=== PATIENT | male | born 1945 | race Caucasian/White ===

== ENCOUNTER 2021-05-10 18:09 | Inpatient (IN) | payer BC ==
[~2021-05-10] VITALS: Ht 180.3 cm; Wt 115.8 kg
--- NOTE | 2021-05-10 20:15 | RAD ---
EXAMINATION: Chest radiograph. VIEWS: 1 COMPARISON: None INDICATION:76 years, Male, Covid pneumonia. FINDINGS: Normal cardiomediastinal silhouette. Left basilar atelectatic changes versus scarring. No focal conso lidation. No pleural effusion or pneumothorax. No acute osseous process. IMPRESSION: No acute cardiopulmonary process. Electronically signed by: Jeff Busch MD (05/10/2021 8:13 PM) [facility]
[2021-05-10] MEDS ORDERED: ACETAMINOPHEN 500 MG TABLET PO ONE (20:30)
[2021-05-10] MEDS ORDERED: IV NORMAL SALINE 1000ML BAG 1,000 ML IV ONE ×2 (20:30→22:00)
[2021-05-10 20:59] LABS: BASO % 0 % (0-3); EOS # 0.1 x10^3/uL (0.0-0.7); EOS % 1 % (0-3); HEMATOCRIT 38.3 % (39.0-53.0); LYMPH # 1.8 x10^3/uL (1.0-4.8); LYMPH % 29 % (24-48); MEAN CORPUSCULAR HEMOGLOBIN 33 pg (25-35); MEAN CORPUSCULAR HGB CONC 34 g/dL (31-37); MEAN CORPUSCULAR VOLUME 96 fL (79-100); MONO # 0.7 x10^3/uL (0.0-1.1); MONO % 12 % (0-9); NEUT # 3.4 x10^3/uL (1.8-7.7); NEUT % 57 % (31-73); PLATELET COUNT 182 x10^3/uL (140-400); RED BLOOD COUNT 3.99 x10^6/uL (4.30-5.70); RED CELL DISTRIBUTION WIDTH 13.3 % (11.5-14.5); WHITE BLOOD COUNT 6.1 x10^3/uL (4.0-11.0)
[2021-05-10 21:07] LABS: CREATININE 2.6 mg/dL (0.7-1.3); POTASSIUM 4.5 mmol/L (3.5-5.1)
[2021-05-10 21:12] LABS: D-DIMER 0.39 ug/mlFEU (0.00-0.50)
[2021-05-10 21:14] LABS: ALBUMIN 3.6 g/dL (3.4-5.0); TOTAL BILIRUBIN 0.4 mg/dL (0.2-1.0); TOTAL PROTEIN 7.3 g/dL (6.4-8.2)
[2021-05-10 21:31] LABS: % ATYL 3 % (0-0); % BANDS 4 % (0-9); % EOS 3 % (0-5); % LYMPHS 30 % (24-48); % MONOS 8 % (0-10); % MYELOS 3 % (0-0); % SEGS 49 % (35-66); PLT ESTIMATE ADEQUATE (ADEQUATE)
[2021-05-11 01:00] LABS: BILIRUBIN,URINE NEGATIVE (NEG); CLARITY,URINE CLEAR; COLOR,URINE YELLOW; NITRITE,URINE NEGATIVE (NEG); PH,URINE 5.5 (<5.0-8.0); PROTEIN,URINE NEGATIVE (NEG-TRACE); UROBILINOGEN,URINE 0.2 mg/dL (0.2 mg/dL)
[2021-05-11 01:11] LABS: BACTERIA,URINE 0 /HPF (0-FEW); HYALINE CASTS, URINE MODERATE /HPF; RBC,URINE 0 /HPF (0-2); WBC,URINE 0 /HPF (0-4)
--- NOTE | 2021-05-11 02:27 | PHYS DOC ---
Adult General Chief Complaint Chief Complaint: SHORTNESS OF BREATH HPI HPI The patient is a 76-year-old male who presents for evaluation of symptoms of illness in the setting of known COVID-19 diagnosis with about 10 days of symptoms. Patient has had diminished oral intake over the past few days along with several episodes of watery diarrhea each day. Family are concerned that he is dehydrated. He is alert and oriented and pleasantly and appropriately interactive and in no acute distress. Vital signs are notable for soft blood pressure; patient is also somewhat bradycardic but family state that is normal for him. Mucous membranes appear dry. Patient denies pain anywhere. He denies vomiting, difficulty breathing, chest pain of any kind, abdominal pain of any kind, flank pain, midline back pain, dysuria, hematuria, polyuria or oliguria. Review of Systems Review of Systems A 12 point review of systems was completed and was negative except where noted in HPI above. Current Medications Current Medications Current Medications Medications (Trade) Dose Ordered Sig/Lilly Start Time Stop Time Status Last Admin Dose Admin Acetaminophen (Tylenol) 1,000 mg 1X ONCE 05/10/21 20:30 05/10/21 20:34 DC 05/10/21 20:52 1,000 MG Sodium Chloride 1,000 ml @ 1,000 mls/hr 1X ONCE 05/10/21 20:30 05/10/21 21:29 DC 05/10/21 20:30 1,000 MLS/HR Allergies Allergies Allergies Coded Allergies Type Severity Reaction Last Updated Verified Penicillins Allergy Intermediate 05/10/21 Yes Physical Exam Physical Exam Elderly male appearing nontoxic and in no acute distress. Head is normocephalic and atraumatic. Neck is supple and nontender. Oropharynx is tacky. Lungs are clear to auscultation at all stations. There is a normal S1 and S2 without rubs or gallops and capillary refill is appropriate, less than 2 seconds globally. Abdomen is soft, nontender and nondistended. Skin is warm and dry without cyanosis, clubbing or edema. Psychiatrically, the patient demonstrates appropriate mood and affect and is alert. Evaluation of the extremities reveals BUEs and BLEs neurovascularly intact distally with strength 5-5, sensation intact light touch in all nerve distributions, radial, DP and PT pulses 2+ and equal bilaterally, capillary refill less than 2 seconds, hands and feet warm and well-perfused. No dependent peripheral edema distally. No calf tenderness or swelling bilaterally. Homans test is negative bilaterally. Current Patient Data Vital Signs Vital Signs Date Time Temp Pulse Resp B/P (MAP) Pulse Ox O2 Delivery O2 Flow Rate FiO2 05/10/21 21:30 65 98/68 (78) 95 Room Air 05/10/21 20:10 16 2.0 Lab Values Laboratory Tests Test 05/10/21 20:20 05/10/21 20:30 White Blood Count 6.1 x10^3/uL (4.0-11.0) Red Blood Count 3.99 x10^6/uL (4.30-5.70) L Hemoglobin 13.0 g/dL (13.0-17.5) Hematocrit 38.3 % (39.0-53.0) L Mean Corpuscular Volume 96 fL (79-100) Mean Corpuscular Hemoglobin 33 pg (25-35) Mean Corpuscular Hemoglobin Concent 34 g/dL (31-37) Red Cell Distribution Width 13.3 % (11.5-14.5) Platelet Count 182 x10^3/uL (140-400) Neutrophils (%) (Auto) 57 % (31-73) Lymphocytes (%) (Auto) 29 % (24-48) Monocytes (%) (Auto) 12 % (0-9) H Eosinophils (%) (Auto) 1 % (0-3) Basophils (%) (Auto) 0 % (0-3) Neutrophils # (Auto) 3.4 x10^3/uL (1.8-7.7) Lymphocytes # (Auto) 1.8 x10^3/uL (1.0-4.8) Monocytes # (Auto) 0.7 x10^3/uL (0.0-1.1) Eosinophils # (Auto) 0.1 x10^3/uL (0.0-0.7) Basophils # (Auto) 0.0 x10^3/uL (0.0-0.2) Segmented Neutrophils % 49 % (35-66) Band Neutrophils % 4 % (0-9) Lymphocytes % 30 % (24-48) Atypical Lymphocytes % (Manual) 3 % (0-0) H Monocytes % 8 % (0-10) Eosinophils % 3 % (0-5) Myelocytes % 3 % (0-0) H Platelet Estimate Adequate (ADEQUATE) Large Platelets Few Giant Platelets Occ Prothrombin Time 13.0 SEC (11.7-14.0) Prothrombin Time INR 1.0 (0.8-1.1) Activated Partial Thromboplast Time 27 SEC (24-38) D-Dimer (Ashely) 0.39 ug/mlFEU (0.00-0.50) Sodium Level 134 mmol/L (136-145) L Potassium Level 4.5 mmol/L (3.5-5.1) Chloride Level 100 mmol/L (98-107) Carbon Dioxide Level 27 mmol/L (21-32) Anion Gap 7 (6-14) Blood Urea Nitrogen 48 mg/dL (8-26) H Creatinine 2.6 mg/dL (0.7-1.3) H Estimated GFR (Cockcroft-Gault) 24.0 BUN/Creatinine Ratio 18 (6-20) Glucose Level 117 mg/dL (70-99) H Lactic Acid Level 1.0 mmol/L (0.4-2.0) Calcium Level 9.0 mg/dL (8.5-10.1) Total Bilirubin 0.4 mg/dL (0.2-1.0) Aspartate Amino Transferase (AST) 62 U/L (15-37) H Alanine Aminotransferase (ALT) 79 U/L (16-63) H Alkaline Phosphatase 107 U/L (46-116) Troponin I High Sensitivity 12 ng/L (4-75) FA-Fid-P-Type Natriuretic Peptide 266 pg/mL (0-449) Total Protein 7.3 g/dL (6.4-8.2) Albumin 3.6 g/dL (3.4-5.0) Albumin/Globulin Ratio 1.0 (1.0-1.7) SARS-CoV-2 Antigen (Rapid) Positive (NEGATIVE) *A Laboratory Tests 05/10/21 20:20 Laboratory Tests 05/10/21 20:20 EKG EKG Sinus rhythm, rate 50, first-degree AV block, no acute ST elevation or depress ion, MI 206, QRS 84, QTc 428, EP interpretation. Nonischemic tracing. Radiology/Procedures Radiology/Procedures EXAMINATION: Chest radiograph. VIEWS: 1 COMPARISON: None INDICATION:76 years, Male, Covid pneumonia. FINDINGS: Normal cardiomediastinal silhouette. Left basilar atelectatic changes versus scarring. No focal consolidation. No pleural effusion or pneumothorax. No acute osseous process. IMPRESSION: No acute cardiopulmonary process. Electronically signed by: Fito Busch MD (05/10/2021 8:13 PM) [facility] DICTATED and SIGNED BY: FITO BUSCH MD DATE: 05/10/[id number] 0 Course & Med Decision Making Course & Med Decision Making Patient is resting comfortably in no acute distress on serial reassessments. Work-up remarkable primarily for evidence of acute renal insufficiency, likely prerenal by history and lab pattern. Transaminasemia is also noted, mild, which is probably secondary to COVID infection. Soft blood pressures have resolved after 2 L of IV fluid rehydration here in the emergency department. Have placed the patient on gentle maintenance fluid infusion as well. Will bring in for further care under hospitalist Dr. Brewster, who graciously accepts. Dragon Disclaimer Dragon Disclaimer This electronic medical record was generated, in whole or in part, using a voice recognition dictation system. Departure Departure Impression: Primary Impression: Acute renal insufficiency Additional Impressions: Dehydration COVID-19 Disposition: ADMITTED INPATIENT Condition: STABLE Referrals: NO PCP (PCP) Problem Qualifiers VASQUEZ RAMOS MD May 11, 2021 02:27
[2021-05-11] MEDS ORDERED: ACETAMINOPHEN 325 MG TABLET. PO PRN (02:30)
[2021-05-11] MEDS ORDERED: ONDANSETRON PF 4 MG/2 ML VIAL. IVP PRN (02:30)
[2021-05-11] MEDS ORDERED: IV DEXTROSE 5%-LACT RINGERS 1,000 ML IV ONE (03:00)
[2021-05-11 04:25] VITALS: BP 123/69
--- NOTE | 2021-05-11 05:57 | EKG ---
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
[2021-05-11 07:00] VITALS: BP 138/63
[2021-05-11] MEDS ORDERED: PROB500T23 PO (08:08)
[2021-05-11] MEDS ORDERED: METO50TA6 PO (08:08)
[2021-05-11] MEDS ORDERED: AMLO-187 PO (08:08)
[2021-05-11] MEDS ORDERED: TIZA-75 PO (08:08)
[2021-05-11] MEDS ORDERED: HYDR-2145 PO (08:08)
[2021-05-11] MEDS ORDERED: SPIR25TA5 PO (08:11)
[2021-05-11] MEDS ORDERED: LISI-379 PO (08:11)
[2021-05-11] MEDS ORDERED: CRESTOR40 MG PO (08:11)
[2021-05-11] MEDS ORDERED: TRAM50TA PO (08:11)
[2021-05-11] MEDS ORDERED: guaiFENesin/CODEINE 100mg/10mg 5 ML LIQUID PO PRN (09:15)
[2021-05-11] MEDS ORDERED: LOPERAMIDE 2 MG CAPSULE PO PRN (09:30)
[2021-05-11] MEDS ORDERED: traMADol 50 MG TABLET PO PRN (09:30)
[2021-05-11] MEDS: LISINOPRIL 20 MG TABLET PO SCH (10:00)
[2021-05-11] MEDS: PROBENECID 500 MG TABLET PO SCH ×2 (10:00→20:00)
[2021-05-11] MEDS: SPIRONOLACTONE 25 MG TABLET PO SCH (10:00)
[2021-05-11] MEDS ORDERED: ALBUTEROL SULFATE 8GM INHALER. INH PRN (10:00)
[2021-05-11] MEDS ORDERED: ENOXAPARIN 30 MG/0.3 ML SYRINGE. SQ SCH (10:00)
[2021-05-11] MEDS: METOPROLOL TART IMMED RELEASE 50 MG TABLET. PO SCH ×2 (10:00→20:00)
[2021-05-11 10:59] VITALS: BP 104/64
[2021-05-11] MEDS: hydroCHLOROthiazide 25 MG TABLET PO SCH (11:40)
[2021-05-11] MEDS: methylPREDNISolone SOD SUCC PF 40 MG/ML VIAL. IV SCH ×2 (11:40→20:00)
[2021-05-11] MEDS: ASPIRIN CHEWABLE 81 MG TABLET. PO SCH (11:47)
[2021-05-11] MEDS: cefTRIAXone IV Push 1 GM VIAL. IVP SCH (11:47)
[2021-05-11] MEDS: DOXYCYCLINE HYCLATE 100 MG in IV DEXTROSE 5% 100ML 100 ML IV SCH ×2 (11:47→19:58)
[2021-05-11] MEDS: MULTIVITAMIN with MINERAL TABLET. PO SCH (11:48)
[2021-05-11] MEDS: tiZANidine 4 MG TABLET. PO SCH (11:48)
--- NOTE | 2021-05-11 13:29 | HP ---
DATE OF SERVICE: 05/11/2021 ADMIT DATE: 05/10/2021 CHIEF COMPLAINT: Shortness of breath, cough, COVID-19 positive a few days ago. HISTORY OF PRESENT ILLNESS: The patient is a pleasant 76-year-old male who presented to the ER with the above chief complaints. Basically, he tested COVID positive on Thursday. He has been having some shortness of breath. His is also COVID positive. While in the ER, we noticed that he has got renal failure with a BUN of 48 and creatinine of 2.6. I discussed the case with the ER physician. We are going to admit the patient for consultation with Nephrology and for COVID protocol. PAST MEDICAL HISTORY: Chronic renal insufficiency and apparently he did have dialysis at one time in the past, hyperlipidemia, hypertension, CHF, arthritis, chronic pain, gout. ALLERGIES: PENICILLIN. FAMILY HISTORY: Diabetes. SOCIAL HISTORY: He does not drink, smoke or take drugs. He is retired. 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 He is . MEDICATIONS: Reviewed. He is on 9 including tizanidine, Crestor, metoprolol, amlodipine, lisinopril, spironolactone, Ultram, hydrochlorothiazide and probenecid. REVIEW OF SYSTEMS: GENERAL: He complains of weakness. SKIN: No bruising, hair changes or rashes. EYES: No blurred, double or loss of vision. NOSE AND THROAT: No history of nosebleeds, hoarseness or sore throat. HEART: No history of palpitations, chest pain or shortness of breath on exertion. LUNGS: He complains of shortness of breath. GASTROINTESTINAL: Denies changes in appetite, nausea, vomiting, diarrhea or constipation. GENITOURINARY: No history of frequency, urgency, hesitancy or nocturia. NEUROLOGIC: Denies history of numbness, tingling, tremor or weakness. PSYCHIATRIC: No history of panic, anxiety or depression. ENDOCRINE: No history of heat or cold intolerance, polyuria or polydipsia. EXTREMITIES: Denies muscle weakness, joint pain, pain on walking or stiffness. LABORATORY DATA: Chest x-ray shows some flattening of the hemidiaphragms, but no acute disease. White count is 6, hemoglobin 13, platelets 182. Electrolytes: Sodium 134, potassium 4.5, chloride 100, bicarbonate 27, BUN 48, creatinine 2.6, glucose 117. AST and ALT are high at 62 and 79. INR is 1.0, PTT 27. COVID testing is positive. ASSESSMENT AND PLAN: COVID-19 and acute on chronic renal failure. The patient has been admitted. We will start gentle IV fluids. Consult Nephrology. COVID protocol. He does not qualify for remdesivir. We will go ahead and start steroids, antibiotics, vitamins, minerals, oxygen, albuterol, codeine cough syrup, aspirin, and Lovenox. Home meds. Deep venous thrombosis prophylaxis. Full code. Respiratory isolation. ekg monitor. P.r.n. Tylenol. SANDI/ARNULFO/KIKA DR: Deyanira TID: [id number]
[2021-05-11 14:59] VITALS: BP 114/62
[2021-05-11] MEDS: HEPARIN for SUB-Q USE 5,000 UNIT/ML VIAL. SQ SCH ×2 (15:04→20:01)
[2021-05-11] MEDS ORDERED: ALBUTEROL SULFATE 2.5 MG/3 ML NEBU. NEB PRN (16:45)
--- NOTE | 2021-05-11 19:05 | CONS ---
DATE OF CONSULTATION: 05/11/2021 REQUESTING PHYSICIAN: Hospitalist. REASON FOR CONSULTATION: Renal failure. HISTORY OF PRESENT ILLNESS: This is a 76-year-old gentleman who presents to the hospital with several day history of cough and increasing shortness of breath. He is found to be COVID-19 positive. The patient's BUN is 48, creatinine 2.6 and in this setting, Nephrology evaluation has been requested. PAST MEDICAL HISTORY: Hypertension, hyperlipidemia, chronic kidney disease, apparently dialysis dependent at one point; degenerative arthritis. ALLERGIES: PENICILLIN. MEDICATIONS: Reviewed per medication list. FAMILY HISTORY: Noncontributory. SOCIAL HISTORY: The patient is retried, is , resides with his . Does not drink, does not use tobacco products. REVIEW OF SYSTEMS: Other than as noted in history of present illness, remainder of review of systems is unremarkable. PHYSICAL EXAMINATION: Due to COVID-19 positive status, bedside examination not pursued. LABORATORY DATA: White count 6.1, hemoglobin 13, hematocrit 38.3, platelets are 182. Sodium 134, potassium 4.5, chloride 100, CO2 of 27, BUN 48, creatinine 2.6, GFR is 24. IMPRESSION: Renal failure -- likely underlying chronic kidney disease by history. Unknown baseline. Now likely has acute exacerbation on the basis of COVID-19 infectious pneumonitis and potential prerenal state, i.e., dehydration. RECOMMENDATIONS: 1. Maintain fluid balance. 2. Acute management of COVID-19 related infection. We will follow. [place] IYER: Kumar TID: [id number]
[2021-05-11 19:29] VITALS: BP 146/70
[2021-05-11] MEDS ORDERED: ATORVASTATIN CALCIUM 40 MG TABLET. PO SCH (21:00)
[2021-05-11 22:40] VITALS: BP 154/67
[2021-05-12 03:08] VITALS: BP 141/86
[2021-05-12] MEDS: HEPARIN for SUB-Q USE 5,000 UNIT/ML VIAL. SQ SCH (05:13)
[2021-05-12 06:15] LABS: ALBUMIN 3.2 g/dL (3.4-5.0); ALBUMIN/GLOBULIN RATIO 0.9 (1.0-1.7); CALCIUM 8.3 mg/dL (8.5-10.1); CREATININE 1.7 mg/dL (0.7-1.3); GFR 39.2; TOTAL BILIRUBIN 0.3 mg/dL (0.2-1.0); TOTAL PROTEIN 6.9 g/dL (6.4-8.2)
[2021-05-12 06:27] LABS: POTASSIUM 5.2 mmol/L (3.5-5.1)
--- NOTE | 2021-05-12 06:40 | RAD ---
EXAM: RENAL ULTRASOUND 05/12/2021 CLINICAL HISTORY: Reason: ARF/CKD / Spl. Instructions: / History: Renal failure COMPARISON: None available. TECHNIQUE: Ultrasound examination of the bilateral kidneys and urinary bladder was performed. FINDINGS: Right kidney measures 12.9 cm in length. Left kidney measures 11.8 cm in length. No hydronephrosis. N o apparent renal mass or shadowing calculus. Urinary bladder is nondistended but otherwise unremarkable. The prostate gland is heterogeneous and e nlarged. IMPRESSION: 1. No acute sonographic abnormality. No hydronephrosis. 2. Prostatomegaly. Electronically signed by: Haja Linda MD (05/12/2021 6:38 AM) [facility]
[2021-05-12 07:00] VITALS: BP 142/85
[2021-05-12] MEDS: tiZANidine 4 MG TABLET. PO SCH (09:00)
[2021-05-12] MEDS: PROBENECID 500 MG TABLET PO SCH (09:44)
[2021-05-12] MEDS: cefTRIAXone IV Push 1 GM VIAL. IVP SCH (09:44)
[2021-05-12] MEDS: hydroCHLOROthiazide 25 MG TABLET PO SCH (09:45)
[2021-05-12] MEDS: METOPROLOL TART IMMED RELEASE 50 MG TABLET. PO SCH (09:45)
[2021-05-12] MEDS: SPIRONOLACTONE 25 MG TABLET PO SCH (09:45)
[2021-05-12] MEDS: ASPIRIN CHEWABLE 81 MG TABLET. PO SCH (09:45)
[2021-05-12] MEDS: MULTIVITAMIN with MINERAL TABLET. PO SCH (09:46)
[2021-05-12] MEDS: LISINOPRIL 20 MG TABLET PO SCH (09:46)
[2021-05-12] MEDS: DOXYCYCLINE HYCLATE 100 MG in IV DEXTROSE 5% 100ML 100 ML IV SCH (09:47)
[2021-05-12] MEDS: methylPREDNISolone SOD SUCC PF 40 MG/ML VIAL. IV SCH (09:48)
[2021-05-12 11:00] VITALS: BP 217/88
--- NOTE | 2021-05-12 14:08 | NUR ---
Discharge Note: MANAN MIMS RITA Discharge instructions and discharge home medications reviewed with Patient and a copy given. All questions have been answered and understanding verbalized. The following instructions and handouts were given: worsening symptoms, follow up, medication and prescriptions, COVID education, and dehydration education. Discontinued lines and drains: telemetry was discontinued and IV from LAC discontinued, skin intact. Patient discharged to home via private vehicle accompanied by daughter. All personal belongings sent with patient.
--- NOTE | 2021-05-12 14:56 | DS ---
DATE OF DISCHARGE: 05/12/2021 ADMITTING DIAGNOSES: COVID-19 and renal failure. DISCHARGE DIAGNOSES: Resolving COVID-19, chronic renal failure, history of chronic obstructive pulmonary disease secondary to remote history of tobacco abuse, but he also had a history of occupational exposure, history of dialysis at one time, history of hyperlipidemia, hypertension, congestive heart failure, arthritis, chronic pain and gout. CONSULTS: Nephrology. PROCEDURES: None. HOSPITAL COURSE: The patient is a pleasant elderly male who presented with shortness of breath and cough, was noted to have COVID-19. We admitted the patient, put him on COVID protocol including empiric IV antibiotics, steroids, vitamins, minerals, albuterol, p.r.n. oxygen, codeine cough syrup, aspirin, and Lovenox. I also consulted Nephrology, who encouraged fluids. Today, I saw him and examined him. He is at his baseline and wants to go home. I plan to discharge with outpatient p.o. doxycycline, steroid taper, vitamins and albuterol. DISPOSITION: Home. ACTIVITY: As tolerated. DIET: Low sodium. MEDICATIONS: Please see MRAD. TOTAL TIME: 32 minutes. SANDI/ANA LAURA DR: SANDI/jadiel TID: [id number]
[2021-05-12] MEDS ORDERED: DOXYCYCLINE HYCLATE 100 MG TABLET PO SCH (21:00)
== END 2021-05-12 14:45 | disposition home or self-care (01) | DRG 177 ==
LOC: ER 18:09 → ED HOLD 21:33 → 5 NORTH 05-11 03:42
PROVIDERS: ADMIT Student in an Organized Health Care Education/Training Program; ATTEND Student in an Organized Health Care Education/Training Program
DX: U07.1 COVID-19 (principal); J12.82 Pneumonia due to coronavirus disease 2019; I13.0 Hypertensive heart and chronic kidney disease with heart failure and stage 1 through stage 4 chronic kidney disease, or unspecified chronic kidney disease; J44.0 Chronic obstructive pulmonary disease with (acute) lower respiratory infection; N17.9 Acute kidney failure, unspecified; E78.5 Hyperlipidemia, unspecified; E86.0 Dehydration; I50.9 Heart failure, unspecified; N18.9 Chronic kidney disease, unspecified; Z78.9 Other specified health status; Z83.3 Family history of diabetes mellitus; Z87.891 Personal history of nicotine dependence; G89.29 Other chronic pain; M10.9 Gout, unspecified; M19.90 Unspecified osteoarthritis, unspecified site; Z88.0 Allergy status to penicillin
CPT/HCPCS: 36415; 71045; 76770; 80053; 81001; 83605; 83880; 84484; 85007; 85025; 85379; 85610; 85730; 87040; 87426; 93005; 96360; 96361; J0696; J1644; J2920; J3490; J7030; J7060; J7121; 99285-25; G0378